=== PATIENT | female | born 1945 | race Caucasian/White ===

== ENCOUNTER 2018-12-08 22:36 | Emergency (ER) | payer MEDICARE ==
[~2018-12-08] VITALS: Ht 170.2 cm; Wt 72.6 kg
[2018-12-08] MEDS ORDERED: IV NORMAL SALINE 1000ML BAG 1,000 ML IV ONE (23:30)
[2018-12-08 23:56] LABS: BASO # 0.1 x10^3/uL (0.0-0.2); BASO % 1 % (0-3); EOS % 0 % (0-3); HEMATOCRIT 41.2 % (36.0-47.0); HEMOGLOBIN 13.8 g/dL (12.0-15.5); LYMPH % 15 % (24-48); MEAN CORPUSCULAR HEMOGLOBIN 31 pg (25-35); MEAN CORPUSCULAR HGB CONC 34 g/dL (31-37); MEAN CORPUSCULAR VOLUME 93 fL (79-100); MONO # 0.5 x10^3/uL (0.0-1.1); MONO % 7 % (0-9); NEUT # 4.8 x10^3uL (1.8-7.7); NEUT % 77 % (31-73); PLATELET COUNT 251 x10^3/uL (140-400); RED BLOOD COUNT 4.43 x10^6/uL (3.50-5.40); RED CELL DISTRIBUTION WIDTH 13.2 % (11.5-14.5); WHITE BLOOD COUNT 6.3 x10^3/uL (4.0-11.0)
[2018-12-09 00:05] LABS: CALCIUM 9.7 mg/dL (8.5-10.1); CREATININE 0.9 mg/dL (0.6-1.0); GFR 61.4; POTASSIUM 4.2 mmol/L (3.5-5.1)
[2018-12-09 00:11] LABS: ALBUMIN/GLOBULIN RATIO 1.2 (1.0-1.7); MAGNESIUM 2.1 mg/dL (1.8-2.4); TOTAL BILIRUBIN 0.6 mg/dL (0.2-1.0); TOTAL PROTEIN 7.4 g/dL (6.4-8.2)
--- NOTE | 2018-12-09 00:52 | PHYS DOC ---
Past Medical History Past Medical History: High Cholesterol Past Surgical History: Hysterectomy Alcohol Use: None Drug Use: None Adult General Chief Complaint Chief Complaint: HYPERTENSION HPI HPI 72 y/o female presents with history of elevated blood pressure today. Patient reports compliance with her blood pressure medications. Reports it seemed to be elevated after patient received two "disturbing" phone calls about some friends. Patient thought it might be secondary to the stress she was feeling. Reports she tried calling her PCP's office and spoke to the inventory control supervisor physician, who felt patient needed to present to the ED for evaluation. Denies chest pain or SOA. Denies headache. Denies nausea or vomiting. Review of Systems Review of Systems Constitutional: Denies fever or chills [] Eyes: Denies change in visual acuity, redness, or eye pain [] HENT: Denies nasal congestion or sore throat [] Respiratory: Denies cough or shortness of breath [] Cardiovascular: Denies chest pain or palpitations GI: Denies abdominal pain, nausea, vomiting, or diarrhea [] : Denies dysuria or hematuria [] Musculoskeletal: Denies back pain or joint pain [] Integument: Denies rash or skin lesions [] Neurologic: Denies headache, focal weakness or sensory changes [] Complete systems were reviewed and found to be within normal limits, except as documented in this note. Current Medications Current Medications Current Medications Medications (Trade) Dose Ordered Sig/Diana Start Time Stop Time Status Last Admin Dose Admin Sodium Chloride 1,000 ml @ 1,000 mls/hr 1X ONCE 12/08/18 23:30 12/09/18 00:29 DC 12/08/18 23:47 1,000 MLS/HR Allergies Allergies Allergies Coded Allergies Type Severity Reaction Last Updated Verified Penicillins Allergy Unknown 12/08/18 Yes Physical Exam Physical Exam Constitutional: Well developed, well nourished, no acute distress, non-toxic appearance. [] HENT: Normocephalic, atraumatic, oropharynx moist Eyes: PERRL, EOMI, conjunctiva normal, no discharge. [] Neck: Normal range of motion, no tenderness, supple Cardiovascular: Heart rate regular rhythm, no murmur [] Lungs & Thorax: Bilateral breath sounds clear to auscultation [] Abdomen: Soft, no tenderness Skin: Warm, dry, no erythema, no rash. [] Back: No tenderness, no CVA tenderness. [] Extremities: No tenderness, ROM intact, no edema. [] Neurologic: Alert and oriented X 3, normal motor function, normal sensory function, no focal deficits noted. [] Psychologic: Affect normal, judgement normal, mood normal. [] Current Patient Data Vital Signs Vital Signs Date Time Temp Pulse Resp B/P (MAP) Pulse Ox O2 Delivery O2 Flow Rate FiO2 12/09/18 01:00 80 18 99 12/08/18 23:00 98.4 178/84 (115) Room Air 98.4 Lab Values Laboratory Tests Test 12/08/18 23:46 White Blood Count 6.3 x10^3/uL (4.0-11.0) Red Blood Count 4.43 x10^6/uL (3.50-5.40) Hemoglobin 13.8 g/dL (12.0-15.5) Hematocrit 41.2 % (36.0-47.0) Mean Corpuscular Volume 93 fL (79-100) Mean Corpuscular Hemoglobin 31 pg (25-35) Mean Corpuscular Hemoglobin Concent 34 g/dL (31-37) Red Cell Distribution Width 13.2 % (11.5-14.5) Platelet Count 251 x10^3/uL (140-400) Neutrophils (%) (Auto) 77 % (31-73) H Lymphocytes (%) (Auto) 15 % (24-48) L Monocytes (%) (Auto) 7 % (0-9) Eosinophils (%) (Auto) 0 % (0-3) Basophils (%) (Auto) 1 % (0-3) Neutrophils # (Auto) 4.8 x10^3uL (1.8-7.7) Lymphocytes # (Auto) 1.0 x10^3/uL (1.0-4.8) Monocytes # (Auto) 0.5 x10^3/uL (0.0-1.1) Eosinophils # (Auto) 0.0 x10^3/uL (0.0-0.7) Basophils # (Auto) 0.1 x10^3/uL (0.0-0.2) Sodium Level 143 mmol/L (136-145) Potassium Level 4.2 mmol/L (3.5-5.1) Chloride Level 105 mmol/L (98-107) Carbon Dioxide Level 27 mmol/L (21-32) Anion Gap 11 (6-14) Blood Urea Nitrogen 13 mg/dL (7-20) Creatinine 0.9 mg/dL (0.6-1.0) Estimated GFR (Cockcroft-Gault) 61.4 BUN/Creatinine Ratio 14 (6-20) Glucose Level 119 mg/dL (70-99) H Calcium Level 9.7 mg/dL (8.5-10.1) Magnesium Level 2.1 mg/dL (1.8-2.4) Total Bilirubin 0.6 mg/dL (0.2-1.0) Aspartate Amino Transferase (AST) 23 U/L (15-37) Alanine Aminotransferase (ALT) 34 U/L (14-59) Alkaline Phosphatase 79 U/L (46-116) Creatine Kinase 67 U/L (26-192) Creatine Kinase MB (Mass) 0.8 ng/mL (0.0-3.6) Creatine Kinase MB Relative Index 1.2 % (0-4) Troponin I Quantitative < 0.017 ng/mL (0.000-0.055) RH-Wtn-A-Type Natriuretic Peptide 166 pg/mL (0-124) H Total Protein 7.4 g/dL (6.4-8.2) Albumin 4.0 g/dL (3.4-5.0) Albumin/Globulin Ratio 1.2 (1.0-1.7) Lipase 96 U/L (73-393) Laboratory Tests 12/08/18 23:46 Laboratory Tests 12/08/18 23:46 EKG EKG @2335 NSR at 82bpm, NO ST elevation, nonspecific t wave inversion III Radiology/Procedures Radiology/Procedures [] Course & Med Decision Making Course & Med Decision Making Pertinent Lab studies reviewed. (See chart for details) Patient presents with report of elevated blood pressure which she thought might have been secondary to increased life stressors today. Reports compliance with her medications. Reports compliance with her medications. Patient neurological intact. Denies chest pain or headache. During ED stay interval improvement of her blood pressure without intervention. Labs obtained and posted to chart. No end organ damage noted. EKG stable. Patient stable for discharge home with outpatient follow-up with PCP. Discussed findings and plan with patientelom acknowledges understanding and agreement. Dragon Disclaimer Dragon Disclaimer This electronic medical record was generated, in whole or in part, using a voice recognition dictation system. Departure Departure Impression: Primary Impression: Hypertension Additional Impression: Anxiety Disposition: 01 HOME, SELF-CARE Condition: STABLE Referrals: JORGE NORTON (PCP) Patient Instructions: Anxiety and Panic Attacks, [id number], Hypertension, [id number] Problem Qualifiers Primary Impression: Hypertension Hypertension type: unspecified Qualified Codes: I10 - Essential (primary) hypertension SHARI DAWN DO Dec 09, 2018 00:52
[2018-12-09 01:00] VITALS: BP 138/64
--- NOTE | 2018-12-09 06:50 | EKG ---
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
== END 2018-12-09 01:00 | disposition home or self-care (01) ==
LOC: ER 22:36
DX: I10 Essential (primary) hypertension (principal); F41.9 Anxiety disorder, unspecified; E78.00 Pure hypercholesterolemia, unspecified; Z88.0 Allergy status to penicillin
CPT/HCPCS: 36415; 80053; 82553; 83690; 83735; 83880; 84484; 85025; 93005; 99285; J7030

== ENCOUNTER → 2019-08-25 | Day surgery (SDC) | payer MEDICARE ==
[~2019-08-25] MED LIST: ATOR10TA PO; CARV25TA2 PO; HYDR12.575 PO; HYDROmorphone 2 MG/ML VIAL IV PRN; IV RINGERS,LACTATED 1000ML 1,000 ML IV SCH; LIDOCAINE 1% PF 2 ML VIAL. ID PRN; LOSA-73 PO; MORPHINE SULFATE 2 MG/ML VIAL. IV PRN; ONDANSETRON PF 4 MG/2 ML VIAL. IV PRN; PROCHLORPERAZINE 10 MG/2 ML VIAL. IV PRN; PROPOFOL 20 ML IV ONE; RESV250C2 PO; fentaNYL PF VIAL 100 MCG/2 ML VIAL IV PRN
[2019-08-25 13:00] VITALS: BP 122/66
--- NOTE | 2019-08-25 23:31 | CONS ---
DATE OF CONSULTATION: 08/25/2019 GASTROENTEROLOGY CONSULTATION REFERRING PHYSICIAN: Jorge Nolasco REASON FOR CONSULTATION: Family history of colon cancer. HISTORY OF PRESENT ILLNESS: This is a 73-year-old female with past medical history significant for hyperlipidemia, hypertension, status post cataract surgery, status post hysterectomy, is seen for screening colon exam. Last exam was 2012 at [facility] without abnormality. Bowel habits are regular without diarrhea or constipation. Weight and appetite are stable. Family history positive for colon cancer with her father and multiple cousins. There has been no bleeding. She is otherwise without additional complaints. PAST MEDICAL HISTORY: Hyperlipidemia, hypertension, status post hysterectomy, status post cataract surgery. ALLERGIES: PENICILLIN, AMLODIPINE, LIDOCAINE. MEDICATIONS: Include atorvastatin, carvedilol, hydrochlorothiazide, losartan and ____. FAMILY AND SOCIAL HISTORY: Significant for colon cancer in her father: She is a nonsmoker, nondrinker. REVIEW OF SYSTEMS: Per records. PHYSICAL EXAMINATION: GENERAL: Reveals a well-nourished, well-developed female who is alert, cooperative, in no acute distress. VITAL SIGNS: Temperature is 98.5, pulse 82, respirations 20. HEENT: Reveals normocephalic, atraumatic head. Pupils and extraocular muscles are not tested. Sclerae anicteric. NECK: Supple. LUNGS: Clear. CARDIOVASCULAR: Reveals S1, S2 without S3, S4 or appreciable murmur. ABDOMEN: Reveals a soft abdomen, normal bowel sounds, without appreciable hepatosplenomegaly with infraumbilical hysterectomy incision as noted. EXTREMITIES: Reveals no cyanosis, clubbing or edema. IMPRESSION AND RECOMMENDATION: Colon cancer family history. Interval exam is recommended. Risks and benefits have been discussed and the patient is willing to proceed at this time. The patient is willing to proceed. [place] SEPULVEDA MD DR: FARNAZ/ailyn JOB#: [id number] / [id number] JORGE Kern
== END ==
LOC: ENDOS 10:29
PROVIDERS: ATTEND Internal Medicine Gastroenterology
DX: Z12.11 Encounter for screening for malignant neoplasm of colon (principal); K57.30 Diverticulosis of large intestine without perforation or abscess without bleeding; K64.0 First degree hemorrhoids; E78.5 Hyperlipidemia, unspecified; I10 Essential (primary) hypertension; Z90.710 Acquired absence of both cervix and uterus; Z98.49 Cataract extraction status, unspecified eye; Z88.5 Allergy status to narcotic agent; Z88.0 Allergy status to penicillin; Z96.1 Presence of intraocular lens; Z88.6 Allergy status to analgesic agent; Z88.1 Allergy status to other antibiotic agents
CPT/HCPCS: G0105; J2704; 45378

== ENCOUNTER 2019-12-05 11:01 | Emergency (ER) | payer MEDICARE ==
[~2019-12-05] VITALS: Ht 170.2 cm; Wt 74.5 kg
[~2019-12-05 11:01] MED LIST changes: -HYDROmorphone 2 MG/ML VIAL IV PRN; -IV RINGERS,LACTATED 1000ML 1,000 ML IV SCH; -LIDOCAINE 1% PF 2 ML VIAL. ID PRN; -MORPHINE SULFATE 2 MG/ML VIAL. IV PRN; -ONDANSETRON PF 4 MG/2 ML VIAL. IV PRN; -PROCHLORPERAZINE 10 MG/2 ML VIAL. IV PRN; -PROPOFOL 20 ML IV ONE; -fentaNYL PF VIAL 100 MCG/2 ML VIAL IV PRN
[2019-12-05] MEDS ORDERED: IV NORMAL SALINE 1000ML BAG 1,000 ML IV SCH (12:22)
--- NOTE | 2019-12-05 12:27 | PHYS DOC ---
Past Medical History Past Medical History: Glaucoma, High Cholesterol Past Surgical History: Hysterectomy Smoking Status: Never Smoker Alcohol Use: None Drug Use: None Adult General Chief Complaint Chief Complaint: DIZZY/LIGHT HEADED HPI HPI Patient is a 73-year-old female who presents to the emergency department for evaluation of dizziness. She states the dizziness began when she was exercising this morning, and is described as a sense of faintness or lightheadedness. She has not had any sense of rotation, and denies any vision changes, tinnitus, or any pain. She has not had any headache, ocular pain, chest pain, palpitations, or shortness of breath. She has not had any nausea, vomiting, or diarrhea. There are no alleviating or exacerbating factors to her symptoms, although she states that lifting her chin upwards seems to exacerbate and precipitate her dizziness. Review of Systems Review of Systems Constitutional: Denies fever or chills [] Eyes: Denies change in visual acuity, redness, or eye pain [] HENT: Denies nasal congestion or sore throat [] Respiratory: Denies cough or shortness of breath [] Cardiovascular: The patient denies any shortness of breath, chest pain, palpitations, or orthopnea[] GI: Denies abdominal pain, nausea, vomiting, bloody stools or diarrhea [] : Denies dysuria or hematuria [] Musculoskeletal: Denies back pain or joint pain [] Integument: Denies rash or skin lesions [] Neurologic: Denies headache, focal weakness or sensory changes [] Endocrine: Denies polyuria or polydipsia [] All other systems were reviewed and found to be within normal limits, except as documented in this note. Current Medications Current Medications Current Medications Medications (Trade) Dose Ordered Sig/Diana Start Time Stop Time Status Last Admin Dose Admin Ceftriaxone Sodium (Rocephin) 1 gm 1X ONCE 12/05/19 13:45 12/05/19 13:46 DC 12/05/19 13:57 1 GM Info (CONTRAST GIVEN -- Rx MONITORING) 1 each PRN DAILY PRN 12/05/19 13:00 12/07/19 12:59 Iohexol (Omnipaque 300 Mg/ml) 60 ml 1X ONCE 12/05/19 13:30 12/05/19 13:31 DC 12/05/19 13:26 60 ML Sodium Chloride 1,000 ml @ 100 mls/hr Q10H 12/05/19 12:22 12/05/19 22:21 12/05/19 12:56 100 MLS/HR Allergies Allergies Allergies Coded Allergies Type Severity Reaction Last Updated Verified amlodipine Allergy Intermediate angiodedema 08/25/19 Yes lidocaine Allergy Intermediate dizzy 08/25/19 Yes Penicillins Allergy Unknown 08/24/19 Yes Physical Exam Physical Exam PHYSICAL EXAM: CONSTITUTIONAL: Well developed, well nourished HEAD: normocephalic, atraumatic EENT: PERRL, EOMI. Conjunctivae normal color, sclerae non-icteric; moist mucous membranes. NECK: Supple, non-tender; no meningismus. There are no carotid bruits. LUNGS: Lungs CTA, breathing even and unlabored. Normal air movement. HEART: Regular rate and rhythm, no murmur CHEST: No deformity; non-tender ABDOMEN: The abdomen is soft, and non-tender, no masses or bruits. EXTREM: Normal ROM; no deformity, no calf tenderness. Normal pulses palpable in all extremities. There is no pedal edema. SKIN: No rash; no diaphoresis NEURO: Alert; normal speech and cognition; CN's grossly intact; strength grossly intact without focal deficit. Visual cortez are intact by confrontation. Qlpsnj-dviu-qrvick and heel jackson testing is normal. Sensation is grossly normal. BACK: No CVA TTP. Current Patient Data Vital Signs Vital Signs Date Time Temp Pulse Resp B/P (MAP) Pulse Ox O2 Delivery O2 Flow Rate FiO2 12/05/19 13:07 63 20 100 12/05/19 11:08 97.6 155/71 (99) Room Air 97.6 Lab Values Laboratory Tests Test 12/05/19 11:30 12/05/19 12:40 12/05/19 12:58 Glucose (Fingerstick) 130 mg/dL (70-99) H White Blood Count 6.2 x10^3/uL (4.0-11.0) Red Blood Count 4.17 x10^6/uL (3.50-5.40) Hemoglobin 13.4 g/dL (12.0-15.5) Hematocrit 39.1 % (36.0-47.0) Mean Corpuscular Volume 94 fL (79-100) Mean Corpuscular Hemoglobin 32 pg (25-35) Mean Corpuscular Hemoglobin Concent 34 g/dL (31-37) Red Cell Distribution Width 13.5 % (11.5-14.5) Platelet Count 286 x10^3/uL (140-400) Neutrophils (%) (Auto) 79 % (31-73) H Lymphocytes (%) (Auto) 13 % (24-48) L Monocytes (%) (Auto) 7 % (0-9) Eosinophils (%) (Auto) 0 % (0-3) Basophils (%) (Auto) 1 % (0-3) Neutrophils # (Auto) 4.9 x10^3/uL (1.8-7.7) Lymphocytes # (Auto) 0.8 x10^3/uL (1.0-4.8) L Monocytes # (Auto) 0.4 x10^3/uL (0.0-1.1) Eosinophils # (Auto) 0.0 x10^3/uL (0.0-0.7) Basophils # (Auto) 0.1 x10^3/uL (0.0-0.2) Sodium Level 139 mmol/L (136-145) Potassium Level 3.5 mmol/L (3.5-5.1) Chloride Level 100 mmol/L (98-107) Carbon Dioxide Level 27 mmol/L (21-32) Anion Gap 12 (6-14) Blood Urea Nitrogen 15 mg/dL (7-20) Creatinine 1.1 mg/dL (0.6-1.0) H Estimated GFR (Cockcroft-Gault) 48.6 BUN/Creatinine Ratio 14 (6-20) Glucose Level 113 mg/dL (70-99) H Calcium Level 9.7 mg/dL (8.5-10.1) Magnesium Level 2.3 mg/dL (1.8-2.4) Total Bilirubin 0.6 mg/dL (0.2-1.0) Aspartate Amino Transferase (AST) 21 U/L (15-37) Alanine Aminotransferase (ALT) 27 U/L (14-59) Alkaline Phosphatase 68 U/L (46-116) Troponin I Quantitative < 0.017 ng/mL (0.000-0.055) Total Protein 7.4 g/dL (6.4-8.2) Albumin 4.1 g/dL (3.4-5.0) Albumin/Globulin Ratio 1.2 (1.0-1.7) Urine Collection Type Unknown Urine Color Yellow Urine Clarity Clear Urine pH 7.0 Urine Specific [place] 1.020 Urine Protein Negative mg/dL (NEG-TRACE) Urine Glucose (UA) Negative mg/dL (NEG) Urine Ketones (Stick) Negative mg/dL (NEG) Urine Blood Negative (NEG) Urine Nitrite Positive (NEG) Urine Bilirubin Negative (NEG) Urine Urobilinogen Dipstick 0.2 mg/dL (0.2 mg/dL) Urine Leukocyte Esterase Moderate (NEG) Urine RBC 0 /HPF (0-2) Urine WBC >40 /HPF (0-4) Urine Squamous Epithelial Cells Mod /LPF Urine Bacteria Many /HPF (0-FEW) Urine Hyaline Casts Moderate /HPF Urine Mucus Mod /LPF Laboratory Tests 12/05/19 12:40 Laboratory Tests 12/05/19 12:40 EKG EKG [] normal sinus rhythm at a rate of 70 beats for minute, left axis deviation, normal intervals. There are no acute ischemic ST/T changes. Radiology/Procedures Radiology/Procedures PROCEDURE: CT ANGIOGRAPHY HEAD AND NECK CTA head with and without and CTA neck with contrast History: Dizziness Technique: Axial images were obtained of the head without contrast and axial helical images were obtained of the head and neck after the intravenous administration of 60 mL of Omni 300 IV contrast. Multiplanar reconstruction was performed on an independent work station including MIP imaging and 3D angiographic imaging. Comparison: none CTA head with and without contrast. Findings: Brain: The aden and white matter appears symmetrical. There is no mass effect, extra-axial fluid collections or hydrocephalus. There is no gross bleed. Distal carotid arteries: normal caliber Vertebral basilar system the basal artery and right vertebral artery are small, this is likely a normal variant. Major cerebral arteries: normal Impression: no acute findings end impression CTA neck with contrast: Findings: Aortic arch and origin of great vessels: normal Common carotid arteries: There is calcification the level of the bulb bilaterally without significant stenosis. Internal carotid arteries: Right: normal Left: normal Vertebral basilar system the right vertebral artery is small. Impression: No significant stenosis. End impression PQRS Compliance Statement - Stenosis calculations for CT, MR and conventional angiography are based upon measurement of the distal ICA diameter in accordance with the NASCET methodology. Stenosis calculations for carotid ultrasound studies are derived from validated velocity criteria which are known to correlate with the NASCET methodology. PQRS Compliance Statement: One or more of the following individualized dose reduction techniques were utilized for this examination: 1. Automated exposure control 2. Adjustment of the mA and/or kV according to patient size 3. Use of iterative reconstruction technique Electronically signed by: Alexys Bird III, MD (12/05/2019 2:38 PM) [id number][] Course & Med Decision Making Course & Med Decision Making Pertinent Labs and Imaging studies reviewed. (See chart for details) [] Patient remains stable. I discussed test results, the need for close follow-up, and return precautions. Dragon Disclaimer Dragon Disclaimer This electronic medical record was generated, in whole or in part, using a voice recognition dictation system. Departure Departure Impression: Primary Impression: Urinary tract infection Additional Impression: Dizziness Disposition: 01 HOME, SELF-CARE Condition: STABLE Referrals: JORGE NORTON (PCP) Patient Instructions: Dizziness, Urinary Tract Infection Scripts Sulfamethoxazole/Trimethoprim (BACTRIM DS TABLET) 1 Each Tablet 1 TAB PO BID, #14 TAB Prov: REYES MARTINEZ MD 12/05/19 Problem Qualifiers REYES MARTINEZ MD Dec 05, 2019 12:26
[2019-12-05 12:50] LABS: BASO # 0.1 x10^3/uL (0.0-0.2); BASO % 1 % (0-3); EOS % 0 % (0-3); HEMATOCRIT 39.1 % (36.0-47.0); HEMOGLOBIN 13.4 g/dL (12.0-15.5); LYMPH # 0.8 x10^3/uL (1.0-4.8); LYMPH % 13 % (24-48); MEAN CORPUSCULAR HEMOGLOBIN 32 pg (25-35); MEAN CORPUSCULAR HGB CONC 34 g/dL (31-37); MEAN CORPUSCULAR VOLUME 94 fL (79-100); MONO # 0.4 x10^3/uL (0.0-1.1); MONO % 7 % (0-9); NEUT # 4.9 x10^3/uL (1.8-7.7); NEUT % 79 % (31-73); PLATELET COUNT 286 x10^3/uL (140-400); RED BLOOD COUNT 4.17 x10^6/uL (3.50-5.40); RED CELL DISTRIBUTION WIDTH 13.5 % (11.5-14.5); WHITE BLOOD COUNT 6.2 x10^3/uL (4.0-11.0)
[2019-12-05] MEDS ORDERED: CONTRAST GIVEN. MC PRN (13:00)
[2019-12-05] MEDS ORDERED: IOHEXOL 300 MG/ML 100ML VIAL. IV ONE ×2 (13:00→13:30)
[2019-12-05 13:03] LABS: CALCIUM 9.7 mg/dL (8.5-10.1); CREATININE 1.1 mg/dL (0.6-1.0); GFR 48.6; POTASSIUM 3.5 mmol/L (3.5-5.1)
[2019-12-05 13:08] LABS: ALBUMIN 4.1 g/dL (3.4-5.0); ALBUMIN/GLOBULIN RATIO 1.2 (1.0-1.7); MAGNESIUM 2.3 mg/dL (1.8-2.4); TOTAL BILIRUBIN 0.6 mg/dL (0.2-1.0); TOTAL PROTEIN 7.4 g/dL (6.4-8.2)
[2019-12-05 13:17] LABS: BILIRUBIN,URINE NEGATIVE (NEG); CLARITY,URINE CLEAR; COLOR,URINE YELLOW; NITRITE,URINE POSITIVE (NEG); PROTEIN,URINE NEGATIVE (NEG-TRACE); UROBILINOGEN,URINE 0.2 mg/dL (0.2 mg/dL)
--- NOTE | 2019-12-05 13:23 | EKG ---
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
[2019-12-05 13:33] LABS: HYALINE CASTS, URINE MODERATE /HPF; SQUAMOUS EPITHELIAL CELL,UR MOD /LPF
[2019-12-05 13:34] LABS: BACTERIA,URINE MANY /HPF (0-FEW); RBC,URINE 0 /HPF (0-2); WBC,URINE >40 /HPF (0-4)
[2019-12-05] MEDS ORDERED: cefTRIAXone IV Push 1 GM VIAL. IVP ONE (13:45)
--- NOTE | 2019-12-05 14:41 | RAD ---
CTA head with and without and CTA neck with contrast History: Dizziness Technique: Axial images were obtained of the head without contrast and axial helical images were obtained of the head and neck after the intravenous administration of 60 mL of Omni 300 IV contrast. Multiplanar reconstruction was performed on an independent work station including MIP imaging and 3D angiographic imaging. Comparison: none CTA head with and without contrast. Findings: Brain: The aden and white matter appears symmetrical. There is no mass effect, extra-axial fluid collections or hydrocephalus. There is no gross bleed. Distal carotid arteries: normal caliber Vertebral basilar system the basal artery and right vertebral artery are small, this is likely a normal variant. Major cerebral arteries: normal Impression: no acute findings end impression CTA neck with contrast: Findings: Aortic arch and origin of great vessels: normal Common carotid arteries: There is calcification the level of the bulb bilaterally without significant stenosis. Internal carotid arteries: Right: normal Left: normal Vertebral basilar system the right vertebral artery is small. Impression: No significant stenosis. End impression PQRS Compliance Statement - Stenosis calculations for CT, MR and conventional angiography are based upon measurement of the distal ICA diameter in accordance with the NASCET methodology. Stenosis calculations for carotid ultrasound studies are derived from validated velocity criteria which are known to correlate with the NASCET methodology. PQRS Compliance Statement: One or more of the following individualized dose reduction techniques were utilized for this examination: 1. Automated exposure control 2. Adjustment of the mA and/or kV according to patient size 3. Use of iterative reconstruction technique Electronically signed by: Alexys Bird III, MD (12/05/2019 2:38 PM) [id number]
[2019-12-05] MEDS ORDERED: SULF1TAB24 PO (15:01)
[2019-12-05 15:24] VITALS: BP 147/67
== END 2019-12-05 15:38 | disposition home or self-care (01) ==
LOC: ER 11:01
DX: N39.0 Urinary tract infection, site not specified (principal); R42 Dizziness and giddiness; E78.00 Pure hypercholesterolemia, unspecified; Z88.0 Allergy status to penicillin; Z88.4 Allergy status to anesthetic agent; Z88.8 Allergy status to other drugs, medicaments and biological substances
CPT/HCPCS: 36415; 70496; 70498; 80053; 81001; 82962; 83735; 84484; 85025; 87086; 93005; 96361; 96374; 99285; J0696; J7030; Q9967

== ENCOUNTER 2021-08-17 16:14 | Emergency (ER) | payer OTHER, MEDICARE ==
[~2021-08-17] VITALS: Ht 162.6 cm; Wt 75.0 kg
[~2021-08-17 16:14] MED LIST changes: +SULF1TAB24 PO
[2021-08-17 17:30] LABS: BASO # 0.1 x10^3/uL (0.0-0.2); BASO % 1 % (0-3); EOS # 0.1 x10^3/uL (0.0-0.7); EOS % 1 % (0-3); HEMATOCRIT 39.7 % (36.0-47.0); HEMOGLOBIN 13.1 g/dL (12.0-15.5); LYMPH # 0.8 x10^3/uL (1.0-4.8); LYMPH % 16 % (24-48); MEAN CORPUSCULAR HEMOGLOBIN 31 pg (25-35); MEAN CORPUSCULAR HGB CONC 33 g/dL (31-37); MEAN CORPUSCULAR VOLUME 94 fL (79-100); MONO # 0.5 x10^3/uL (0.0-1.1); MONO % 10 % (0-9); NEUT # 3.7 x10^3/uL (1.8-7.7); NEUT % 71 % (31-73); PLATELET COUNT 265 x10^3/uL (140-400); RED BLOOD COUNT 4.22 x10^6/uL (3.50-5.40); RED CELL DISTRIBUTION WIDTH 13.3 % (11.5-14.5); WHITE BLOOD COUNT 5.1 x10^3/uL (4.0-11.0)
[2021-08-17 17:55] LABS: BILIRUBIN,URINE NEGATIVE (NEG); CLARITY,URINE CLEAR; COLOR,URINE YELLOW; NITRITE,URINE NEGATIVE (NEG); PROTEIN,URINE NEGATIVE (NEG-TRACE); UROBILINOGEN,URINE 0.2 mg/dL (0.2 mg/dL)
[2021-08-17 17:58] LABS: CALCIUM 9.1 mg/dL (8.5-10.1); CREATININE 0.8 mg/dL (0.6-1.0); GFR 69.7; POTASSIUM 4.3 mmol/L (3.5-5.1)
[2021-08-17 18:00] LABS: BACTERIA,URINE 0 /HPF (0-FEW); RBC,URINE 0 /HPF (0-2); WBC,URINE 0 /HPF (0-4)
--- NOTE | 2021-08-17 18:03 | PHYS DOC ---
Past Medical History Past Surgical History: Hysterectomy General Adult EDM: Chief Complaint: HYPERTENSION HPI: HPI: Patient is a 75 year old female who presents with concerns of hypertension. Patient states that she had been checking her blood pressure all day long and her blood pressure is higher than normal for her. Patient denies chest pain, headache, blurry vision, shortness of breath. Patient has no complaints. Patient is very anxious and reports being very stressed out recently. Patient has a history of hypertension and hyperlipidemia. Review of Systems: Review of Systems: ROS At least 10 ROS systems have been reviewed and are negative except as documented in the HPI. General: Negative except as outlined in HPI above. Skin: Negative except as outlined in HPI above. HEENT: Negative except as outlined in HPI above. Neck: Negative except as outlined in HPI above. Respiratory: Negative except as outlined in HPI above.. Cardiovascular: Negative except as outlined in HPI above. Abdomen: Negative except as outlined in HPI above. : Negative except as outlined in HPI above. Back/MSK: Negative except as outlined in HPI above. Neuro: Negative except as outlined in HPI above. Psych: Negative except as outlined in HPI above. Heart Score: C/O Chest Pain: No Risk Factors: Risk Factors: DM, Current or recent (<one month) smoker, HTN, HLP, family history of CAD, obesity. Risk Scores: Score 0 - 3: 2.5% MACE over next 6 weeks - Discharge Home Score 4 - 6: 20.3% MACE over next 6 weeks - Admit for Clinical Observation Score 7 - 10: 72.7% MACE over next 6 weeks - Early Invasive Strategies Allergies: Allergies: Allergies Coded Allergies Type Severity Reaction Last Updated Verified Penicillins Allergy Intermediate 08/17/21 Yes Physical Exam: PE: Constitutional: Well developed, well nourished, no acute distress, non-toxic appearance. [] HENT: Normocephalic, atraumatic, bilateral external ears normal, oropharynx moist, no oral exudates, nose normal. [] Eyes: PERRLA, EOMI, conjunctiva normal, no discharge. [] Neck: Normal range of motion, no tenderness, supple, no stridor. [] Cardiovascular:Heart rate regular rhythm, no murmur [] Lungs & Thorax: Bilateral breath sounds clear to auscultation [] Abdomen: Bowel sounds normal, soft, no tenderness, no masses, no pulsatile masses. [] Skin: Warm, dry, no erythema, no rash. [] Back: No tenderness, no CVA tenderness. [] Extremities: No tenderness, no cyanosis, no clubbing, ROM intact, no edema. [] Neurologic: Alert and oriented X 3, normal motor function, normal sensory function, no focal deficits noted. [] Psychologic: Affect normal, judgement normal, mood normal. [] Current Patient Data: Labs: Laboratory Tests Test 08/17/21 17:25 White Blood Count 5.1 x10^3/uL (4.0-11.0) Red Blood Count 4.22 x10^6/uL (3.50-5.40) Hemoglobin 13.1 g/dL (12.0-15.5) Hematocrit 39.7 % (36.0-47.0) Mean Corpuscular Volume 94 fL (79-100) Mean Corpuscular Hemoglobin 31 pg (25-35) Mean Corpuscular Hemoglobin Concent 33 g/dL (31-37) Red Cell Distribution Width 13.3 % (11.5-14.5) Platelet Count 265 x10^3/uL (140-400) Neutrophils (%) (Auto) 71 % (31-73) Lymphocytes (%) (Auto) 16 % (24-48) L Monocytes (%) (Auto) 10 % (0-9) H Eosinophils (%) (Auto) 1 % (0-3) Basophils (%) (Auto) 1 % (0-3) Neutrophils # (Auto) 3.7 x10^3/uL (1.8-7.7) Lymphocytes # (Auto) 0.8 x10^3/uL (1.0-4.8) L Monocytes # (Auto) 0.5 x10^3/uL (0.0-1.1) Eosinophils # (Auto) 0.1 x10^3/uL (0.0-0.7) Basophils # (Auto) 0.1 x10^3/uL (0.0-0.2) Troponin I High Sensitivity 5 ng/L (4-50) Laboratory Tests 08/17/21 17:25 Vital Signs: Vital Signs Date Time Temp Pulse Resp B/P (MAP) Pulse Ox O2 Delivery O2 Flow Rate FiO2 08/17/21 17:04 97.8 86 17 197/91 (126) 98 Room Air 97.8 EKG: EKG: HR 70 BPM. NO STEMI. Read by Dr. Reilly.[] Radiology/Procedures: Radiology/Procedures: [] Course & Med Decision Making: Course & Med Decision Making Pertinent Labs and Imaging studies reviewed. (See chart for details) [] 75-year-old female presents with concerns for hypertension. Patient has taken her blood pressure multiple times today and brought in a log with her to the ER. Highest blood pressure for the day was 170s which was when she was in the emergency room. Patient denies all symptoms. Patient denies any pain. Patient appears very anxious and admits that she has been causing herself to be anxious by continually checking her blood pressure. All labs are unremarkable. UA is unremarkable. Patient's blood pressure in the emergency room has been within normal limits. Discussed results with patient. Advised patient that she needs to call Dr. Olivares, her PCP on Thursday to make a follow-up appointment for further evaluation. Patient is requesting something for anxiety. Patient given p.o. anxiety medication to help with symptoms. Patient reports that she understands discharge instructions. Discussed strict return precautions. Patient is hemodynamically stable upon disposition. Dragon Disclaimer: CMGE Disclaimer: This electronic medical record was generated, in whole or in part, using a voice recognition dictation system. Departure Departure Impression: Primary Impression: Anxiety Disposition: 01 HOME / SELF CARE / HOMELESS Condition: STABLE Referrals: UNKNOWN PCP NAME (PCP) Patient Instructions: Anxiety and Panic Attacks, [id number] Additional Instructions: You were seen in the emergency room for concerns with high blood pressure. You were also reporting a lot of anxiety symptoms. All of your labs were unremarkable. Your EKG was unremarkable. Urine was unremarkable. Your blood pressure while in the emergency room was within normal limits. Please call your PCP on Thursday and make a follow-up appointment to discuss your anxiety symptoms and also your concerns with your blood pressure. EMERGENCY DEPARTMENT GENERAL DISCHARGE INSTRUCTIONS Thank you for coming to [facility] Emergency Department (ED) today and trusting us with you care. We trust that you had a positive experience in our Emergency Department. If you wish to speak to the department management, you may call the Director at [phone]. YOUR FOLLOW UP INSTRUCTIONS ARE FOLLOWS: 1. Do you have a private Doctor? If you do not have a private doctor, please ask for a resource list of physicians or clinics that may be able to assist you with follow up care. 2. The Emergency Physicain has interpreted your x-rays. The X-Ray specialist will also review them. If there is a change in the findings, you will be notified in 48 hours when at all possible. 3. A lab test or culture has been done, your results will be reviewed and you will be notified if you need a change in treatment. ADDITIONAL INSTRUCTIONS AND INFORMATION: 1. Your care today has been supervised by a physician who is specially trained in emergency care. Many problems require more than one evaluation for a complete diagnosis and treatment. We recommend that you schedule your follow up appointment as recommended to ensure complete treatment of you illness or injury. If you are unable to obtain follow up care and continue to have a problem, or if your condition worsens, we recommend that you return to the ED. 2. We are not able to safely determine your condition over the phone nor are we able to give sound medical advice over the phone. For these safety reasons, if you call for medical advice we will ask you to come to the ED for further evaluation. 3. If you have any questions regarding these discharge instructions please call the ED at [phone]. SAFETY INFORMATION: In the interest of safety, wellness, and injury prevention; we encourage you to wear your sealbelt, if you smoke; quite smoking, and we encourage family to use a protective helmet for bicycling and other sporting events that present an increased risk for head injury. IF YOUR SYMPTOMS WORSEN OR NEW SYMPTOMS DEVELOP, OR YOU HAVE CONCERNS ABOUT YOUR CONDITION; OR IF YOUR CONDITION WORSENS WHILE YOU ARE WAITING FOR YOUR FOLLOW UP APPOINTMENT; EITHER CONTACT YOUR PRIMARY CARE DOCTOR, THE PHYSICIAN WHOSE NAME AND NUMBER YOU WERE GIVEN, OR RETURN TO THE ED IMMEDIATELY. GRACIA MA APRN Aug 17, 2021 18:03
[2021-08-17 19:30] VITALS: BP 178/78
[2021-08-17] MEDS ORDERED: ALPRAZolam 0.5 MG TABLET ONE (19:39)
[2021-08-17] MEDS ORDERED: ALPRAZolam 1 MG TABLET PO ONE (19:45)
--- NOTE | 2021-08-18 01:00 | EKG ---
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
== END 2021-08-17 19:48 | disposition home or self-care (01) ==
LOC: ER 16:14 → MERGE 16:14 → ER 19:48
DX: F41.9 Anxiety disorder, unspecified (principal); I10 Essential (primary) hypertension; Z88.0 Allergy status to penicillin
CPT/HCPCS: 36415; 80048; 81001; 84484; 85025; 93005; 99284